=== PATIENT | male | born 1975 | race Caucasian/White ===

== ENCOUNTER 2016-10-21 18:18 | Emergency (ER) | payer SELFPAY ==
[2016-10-21] MEDS ORDERED: DIPH,PERTUSS(ACELL),TET VAC/PF 0.5 ML VIAL IM ONE (18:44)
--- NOTE | 2016-10-21 19:04 | ER PHYSICIAN DOCUMENTATION ---
Physician Documentation [facility] Name:Stefano Brown Age:40 yrs Sex:Male :1975 Arrival Date:10/21/2016 Time:18:18 Bed1 Private MD: Iván Ge Disposition: 10/21 19:06 Chart complete. cd Disposition: 10/21/16 18:52 Discharged to Home/Self Care. Impression: Contusion - : Acute, Left Thumb, Abrasion - : Acute of left Thumb. - Condition is Good. - Discharge Instructions: ABRASION, CONTUSION, Soft Tissue. - Prescriptions for Hydrocodone- Acetaminophen 5-325 mg Oral - take 1 tablet by ORAL route every 6 hours As needed; 7 tablet. - Medical Reconciliation form form. - Follow up: Private Physician; When: 7 - 10 days; Reason: Recheck today's complaints, Continuance of care. - Problem is new. - Symptoms are unchanged. - Notes: Keep wound clean, dry and covered. Apply Bacitracin Ointment to wound every day. Watch out for signs of infection, redness, puss, drainage, swelling or increased pain. Take Ibuprofen 600mg by mouth every 6 hour with food for pain... Take Vicodin 1 tab by mouth every 6 hours as needed for severe pain....but not while working or driving. Remember Year 2016...your last Tetanus booster. HPI: 18:30 This 40 yrs old Male presents to ER via Private Vehicle with complaints of cd Thumb Injury - LEFT. 18:30 The patient or guardian reports an abrasion, a contusion, pain. The complaints affect cd the palmar aspect of distal phalanx of left thumb. Context: The problem was sustained at work, resulted from a direct blow, hammer. Onset: The symptom(s)/episode began/occurred acutely, just prior to arrival. Severity of symptoms: At their worst the symptoms were moderate, in the emergency department the symptoms are unchanged. Historical: - Allergies: No known drug Allergies; - PMHx: chronic back pain; bulging discs; UMBILICAL HERNIA; left knee fracture, never repaired; - PSHx: HERNIA REPAIR; - Tetanus: unknown. - Ebola Screening: : Patient denies exposure to infectious person. Patient denies travel to an Ebola-affected area in the 21 days before illness onset. . - Social history: Smoking status: Patient uses tobacco products, current every day smoker. Patient uses alcohol occasionally. marijuana. ROS: 19:03 MS/extremity: Positive for abrasion, contusion, pain, Negative for paresthesias. cd 19:03 All other systems are negative. Exam: 19:03 Musculoskeletal/extremity: Extremities: grossly normal except: noted in the palmar cd aspect of distal phalanx of left thumb: abrasion, contusion, pain, ROM: no acute changes, Circulation is intact in all extremities. Sensation intact. Tendon exam: specific tendon testing normal through active and passive range of motion 19:03 Skin: Appearance: normal except for affected area. 19:04 Constitutional: The patient appears alert, awake, anxious, in obvious distress, cd moderately distressed. Vital Signs: 18:31 BP 122 / 86; Pulse 91; Resp 20; Temp 98.1; Pulse Ox 100% on R/A; Pain 10/10; st MDM: 18:45 Test interpretation: by ED physician or midlevel provider: plain radiologic studies, cd Left thumb X-Ray Negative. 18:50 Patient medically screened. cd 19:04 Data reviewed: vital signs, nurses notes, old medical records, and as a result, I will cd discharge patient. Counseling: I had a detailed discussion with the patient and/or guardian regarding: the historical points, exam findings, and any diagnostic results supporting the discharge/admit diagnosis, radiology results, the need for outpatient follow up, for a recheck, with the patient's primary care provider, to return to the emergency department if symptoms worsen or persist or if there are any questions or concerns that arise at home. 10/21 18:28 Order name: Ice Packs; Complete Time: 18:28 st Dispensed Medications: 18:42 Drug: Adacel 0.5 ml; {Master Fisher: [employer]innamon[employer]. Exp: 09/28/2018. Lot #: [id number]. } Route: IM; Site: right deltoid; 18:55 Follow up: Response: No adverse reaction st Signatures: Halley Shabazz RN RN st Daley, Chris, MD MD cd
--- NOTE | 2016-10-21 19:04 | ER NURSING DOCUMENTATION ---
Nurse's Notes [facility] Name:Stefano Brown Age:40 yrs Sex:Male :1975 Arrival Date:10/21/2016 Time:18:18 Bed1 Private MD: Diagnosis:Contusion-: Acute, Left Thumb;Abrasion-: Acute of left Thumb Presentation: 10/21 18:21 Notified ED Physician of Dr. Wu notified. st 18:21 Acuity: NATY 3 st 18:26 Presenting complaint: Presenting complaint: Patient states: pt hit is left thumb with a st framing hammer. 18:28 Transition of care: Home. st 18:28 Method Of Arrival: Private Vehicle st Triage Assessment: 18:29 General: Appears uncomfortable, Behavior is cooperative. Pain: Complains of pain in st dorsal aspect of distal phalanx of left thumb Pain currently is 10 out of 10 on a pain scale. Cardiovascular: No deficits noted. Respiratory: No deficits noted. GI: No deficits noted. Musculoskeletal: Swelling present in dorsal aspect of distal phalanx of left thumb. Injury Description: Bruise sustained to palmar aspect of distal phalanx of left thumb small crack down the [place] side of the left thumb. Historical: - Allergies: No known drug Allergies; - PMHx: chronic back pain; bulging discs; UMBILICAL HERNIA; left knee fracture, never repaired; - PSHx: HERNIA REPAIR; - Tetanus: unknown. - Ebola Screening: : Patient denies exposure to infectious person. Patient denies travel to an Ebola-affected area in the 21 days before illness onset. . - Social history: Smoking status: Patient uses tobacco products, current every day smoker. Patient uses alcohol occasionally. marijuana. Screenin:31 Infectious Disease Risk None. Abuse screen: Denies threats or abuse. Denies injuries st from another. pt feels safe at home. Nutritional screening: No deficits noted. Vital Signs: 18:31 BP 122 / 86; Pulse 91; Resp 20; Temp 98.1; Pulse Ox 100% on R/A; Pain 10/10; st ED Course: 18:20 Patient arrived in ED. lm3 18:20 Twombly, Summer, RN is Primary Nurse. st 18:[address] 18:32 Valuables Remains with patient Patient has correct armband on for positive st identification. Bed in low position. 18:32 [address] injury. st 18:50 Iván Wu MD is Attending Physician. cd 18:55 Wound care was cleaned with Hibiclens, dressed with Tube Gauze Telfa. st 19:05 Primary Nurse role handed off by Halley Shabazz RN st Administered Medications: 18:42 Drug: Adacel 0.5 ml; {Binder Operator: [employer]. Exp: 09/28/2018. Lot #: [id number]. } Route: IM; Site: right deltoid; 18:55 Follow up: Response: No adverse reaction st Outcome: 18:52 Discharge ordered by . cd 19:02 Discharged to home ambulatory. st 19:02 Condition: good 19:02 Discharge instructions given to patient, Instructed on discharge instructions, follow up and referral plans. medication usage, Prescriptions given X 1. 19:03 Patient [address] the ED. st 19:10 Patient [address] the ED[address] st 04 11:43 Discharge F/U Call: Spoke with: patient. Did your discharge instructions answer all lp of your questions? yes Have you made a f/u appointment? No. Reason for no f/u appt: No Insurance. Signatures: Halley Shabazz RN RN st Pavlish, Lena, RN RN lp Daley, Chris, MD MD Amaya Fox 3
--- NOTE | 2016-10-21 22:01 | RADIOLOGY REPORT ---
HISTORY: Left thumb injury COMPARISON: None. FINDINGS: 3 views of the fingers obtained. No acute fracture or dislocation. Mild osteoarthritis of the first M CP joint. No lytic or sclerotic lesion. No focal soft tissue swelling. No radiopaque foreign body. IMPRESSION: 1. No acute osseous abnormality. 2. 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 Final Electronic Signature: This report was electronically signed by Miles Rodríguez MD on 10/21/2016 9:59 PM. [email or web address] /
== END 2016-10-21 19:10 | disposition home or self-care (01) ==
LOC: ER 18:18
DX: S60.012A Contusion of left thumb without damage to nail, initial encounter (principal); S60.311A Abrasion of right thumb, initial encounter; W27.0XXA Contact with workbench tool, initial encounter; Z23 Encounter for immunization; Y92.61 Building [any] under construction as the place of occurrence of the external cause; Y93.H3 Activity, building and construction
CPT/HCPCS: 90471; 99283

== ENCOUNTER 2016-12-10 12:12 | Emergency (ER) | payer SELFPAY ==
--- NOTE | 2016-12-10 13:08 | ER NURSING DOCUMENTATION ---
Nurse's Notes [facility] Name:Stefano Brown Age:41 yrs Sex:Male :1975 Arrival Date:12/10/2016 Time:12:12 Bed6 Private MD: Diagnosis:Wrist Sprain Presentation: 12/10 12:21 Presenting complaint: Patient states: fell off of longboard 2 days ago. c/o pain in sc1 left wrist and has avulsion abrasions to palms of both hands. Transition of care: patient was not received from another setting of care. Notified ED Physician of patient's arrival and CC James Castillo notified. 12:21 Acuity: NATY 3 sc1 12:21 Method Of Arrival: Private Vehicle ky1 Triage Assessment: 12:26 General: Appears uncomfortable, well developed, well nourished, well groomed, Behavior sc1 is cooperative, pleasant. Pain: Complains of pain in left wrist. Musculoskeletal: Circulation, motion, and sensation intact Capillary refill < 3 seconds Tenderness. Historical: - Allergies: No known drug Allergies; - Home Meds: 1. None - PMHx: None; - PSHx: None; - Tetanus: < 10 years. - Ebola Screening: : Patient negative for fever greater than or equal to 101.5 degrees Fahrenheit, and additional compatible Ebola Virus Disease symptoms. Patient denies exposure to infectious person. Patient denies travel to an Ebola-affected area in the 21 days before illness onset. No symptoms or risks identified at this time. . - Immunization history: Flu Vaccine < 1 year. - Social history: Smoking status: Patient states was never smoker of tobacco. Patient/guardian denies using alcohol, street drugs, IV drugs, marijuana. Screenin:27 Infectious Disease Risk None. Abuse screen: Denies threats or abuse. Nutritional sc1 screening: No deficits noted. Vital Signs: 12:20 BP 129 / 82 RA Sitting (auto/reg); Pulse 89 RA; Resp 18 S; Temp 97.8(O); Pulse Ox 93% em3 on R/A; Weight 65.77 kg (R); Height 5 ft. 9 in. (175.26 cm) (R); Pain 8/10; 12:20 Body Mass Index 21.41 (65.77 kg, 175.26 cm) em3 ED Course: 12:14 Patient arrived in ED. ama 12:20 Valuables Remains with patient Patient has correct armband on for positive em3 identification. Bed in low position. Call light in reach. Side rails up X 1. Ice pack to injury. 12:21 Laina Khan, RN is Primary Nurse. [facility] [place] 12:23 Triage completed. ky1 12:25 Nestor Ramirez MD is Attending Physician. brice 12:28 Port Xray Completed. alex 12:34 Port Xray Completed. ms 12:50 Elan Mejia DO is Referral Physician. brice 13:04 Velcro wrist splint applied to left wrist. Wound care to abrasion, located on left sc1 wrist was dressed with 4X4s, cling, Patient tolerated well. Administered Medications: No medications were administered Outcome: 12:50 Discharge ordered by . 13:07 Discharged to home ambulatory. [facility] [place] 13:07 Condition: stable 13:07 Discharge instructions given to patient, Instructed on discharge instructions, follow up and referral plans. medication usage, [facility] Demonstrated understanding of instructions, medications, Prescriptions given X 1. 13:08 Patient left the ED. [facility] [place] 06/03 12:01 Discharge F/U Call: Unable to reach: no answer st Signatures: Halley Shabazz RN RN st Campbell, Sandy, HOSEA RN ky1 Nestor Ramirez MD MD jm Strickland, Mary ms Abbott, Angel Sanchez 3 Luis Chavez, Reg Reg ama
--- NOTE | 2016-12-10 13:08 | ER PHYSICIAN DOCUMENTATION ---
Physician Documentation [facility] Name:Stefano Brown Age:41 yrs Sex:Male :1975 Arrival Date:12/10/2016 Time:12:12 Bed6 Private MD: Nestor Simental Disposition: 12/10/16 12:50 Discharged to Home/Self Care. Impression: Wrist Sprain. - Condition is Good. - Discharge Instructions: WRIST SPRAIN. - Prescriptions for Hydrocodone- Acetaminophen 5-325 mg Oral Tablet - take 1 tablet by ORAL route every 6 hours As needed; 20 tablet. - Medical Reconciliation form form. - Follow up: Elan Mejia DO; When: 4- 6 days; Reason: Worsening of condition. - Problem is new. - Symptoms have improved. HPI: 12/10 13:02 This 41 yrs old Male presents to ER via Private Vehicle with complaints of jm Wrist Injury - L. 13:02 The patient or guardian reports injury, pain. The complaints affect the left wrist jm diffusely. Context: resulted from a fall, while skating, on an outstretched hand. Onset: The symptom(s)/episode began/occurred 3 day(s) ago. Historical: - Allergies: No known drug Allergies; - Home Meds: 1. None - PMHx: None; - PSHx: None; - Tetanus: < 10 years. - Ebola Screening: : Patient negative for fever greater than or equal to 101.5 degrees Fahrenheit, and additional compatible Ebola Virus Disease symptoms. Patient denies exposure to infectious person. Patient denies travel to an Ebola-affected area in the 21 days before illness onset. No symptoms or risks identified at this time. . - Immunization history: Flu Vaccine < 1 year. - Social history: Smoking status: Patient states was never smoker of tobacco. Patient/guardian denies using alcohol, street drugs, IV drugs, marijuana. ROS: 13:03 Constitutional: Negative for fever. jm 13:03 MS/extremity: Positive for injury or acute deformity, abrasion, decreased range of motion, pain, Negative for swelling. 13:03 Skin: Positive for abrasion(s), Negative for ecchymosis. 13:03 Neuro: Positive for tingling. Exam: 13:40 Hand exam: Exam is positive for abrasion, ROM: limited active range of motion due to jm pain, limited passive range of motion due to pain, in the left wrist, Pulses: are normal with no appreciated deficits, Tingling of extremity. 13:40 Skin: Appearance: Color: pink, cellulitis, is not appreciated, injury, abrasion(s), small abrasion noted, of the heel of left hand. 13:40 Constitutional: The patient appears alert, awake, comfortable. 13:40 Neuro: Vital Signs: 12:20 BP 129 / 82 RA Sitting (auto/reg); Pulse 89 RA; Resp 18 S; Temp 97.8(O); Pulse Ox 93% em3 on R/A; Weight 65.77 kg (R); Height 5 ft. 9 in. (175.26 cm) (R); Pain 8/10; 12:20 Body Mass Index 21.41 (65.77 kg, 175.26 cm) em3 MDM: 12:25 Patient medically screened. 13:42 Differential diagnosis: closed fracture. Data reviewed: vital signs, nurses notes, old medical records, radiologic studies, and as a result, I will discharge patient. Counseling: I had a detailed discussion with the patient and/or guardian regarding: the historical points, exam findings, and any diagnostic results supporting the discharge/admit diagnosis, radiology results, the need for outpatient follow up, with the patient's primary care provider. ED course: No fx noted. Pt placed in a cock-up splint. . 12/10 13:12 Order name: WRIST; [place] [id number] [place] 12/10 12:49 Order name: ORTHO: Splint; Complete Time: 13:07 Dispensed Medications: No medications were administered Signatures: Laina Khan, RN RN sc1 Nestor Ramirez MD MD
--- NOTE | 2016-12-10 13:12 | RADIOLOGY REPORT ---
HISTORY: Fall. Left wrist trauma. COMPARISON: None. FINDINGS: 4 views of the wrist obtained. There is no fracture. There is no lytic or sclerotic lesion. There is no scapholunate dislocation. Joint spaces are adequately maintained and in alignment. No subluxat ion or dislocation. No opaque foreign body or pathologic soft tissue calcifications. IMPRESSION: Negative left wrist. Final Electronic Signature: This report was electronically signed by Naeem Reid MD on 12/10/2016 1:0 9 PM. [facility] /
== END 2016-12-10 13:08 | disposition home or self-care (01) ==
LOC: ER 12:12
DX: S63.502A Unspecified sprain of left wrist, initial encounter (principal); S60.512A Abrasion of left hand, initial encounter; V00.121A Fall from non-in-line roller-skates, initial encounter; Y93.51 Activity, roller skating (inline) and skateboarding
CPT/HCPCS: 99284